=== PATIENT | male | born 1985 | race Caucasian/White ===

== ENCOUNTER 2021-09-28 02:45 | Inpatient (IN) | payer OTHER ==
[~2021-09-28] VITALS: Ht 182.9 cm; Wt 111.0 kg
[2021-09-28 03:22] LABS: BASOPHIL 0.2 % (0-2); EOSINOPHIL 0 % (0-5); HCT 43.9 % (42.0-52.0); HGB 14.2 g/dl (13.2-18.0); LYMPHOCYTE 14.4 % (15-48); MCH 28.9 pg (25.0-31.0); MCHC 32.3 g/dL (32.0-36.0); MCV 89.2 fL (78.0-100.0); MONOCYTE 7.5 % (0-12); MPV 12.3 fL (6.0-9.5); NEUTROPHIL 77.4 % (41-80); NRBC 0; PLT 117 K/uL (150-400); RBC 4.92 M/uL (4.70-6.00); RDW 12.2 % (11.5-14.0); WBC 5.5 K/uL (4.0-10.5)
[2021-09-28 04:17] LABS: BUN/CREAT RATIO (CALC) 16.2 RATIO; CREATININE 0.74 mg/dL (0.67-1.17); POTASSIUM 3.9 mmol/L (3.5-5.1)
[2021-09-29 06:15] LABS: BASOPHIL 0 % (0-2); EOSINOPHIL 0 % (0-5); HCT 42.3 % (42.0-52.0); HGB 13.7 g/dl (13.2-18.0); LYMPHOCYTE 13.1 % (15-48); MCH 28.8 pg (25.0-31.0); MCHC 32.4 g/dL (32.0-36.0); MCV 88.9 fL (78.0-100.0); MONOCYTE 5.6 % (0-12); MPV 12.8 fL (6.0-9.5); NEUTROPHIL 80.8 % (41-80); NRBC 0; PLT 134 K/uL (150-400); RBC 4.76 M/uL (4.70-6.00); RDW 12.3 % (11.5-14.0); WBC 8.3 K/uL (4.0-10.5)
[2021-09-29 06:37] LABS: BUN/CREAT RATIO (CALC) 19.7 RATIO; CREATININE 0.66 mg/dL (0.67-1.17); POTASSIUM 3.6 mmol/L (3.5-5.1)
[2021-09-30 06:31] LABS: BASOPHIL 0.2 % (0-2); EOSINOPHIL 0 % (0-5); HCT 42.6 % (42.0-52.0); HGB 13.6 g/dl (13.2-18.0); LYMPHOCYTE 7.8 % (15-48); MCH 28.9 pg (25.0-31.0); MCHC 31.9 g/dL (32.0-36.0); MCV 90.6 fL (78.0-100.0); MONOCYTE 4.1 % (0-12); NEUTROPHIL 86.9 % (41-80); NRBC 0; PLT 139 K/uL (150-400); RDW 12.2 % (11.5-14.0); WBC 6.3 K/uL (4.0-10.5)
[2021-09-30 06:51] LABS: BUN/CREAT RATIO (CALC) 24.1 RATIO; CREATININE 0.58 mg/dL (0.67-1.17); POTASSIUM 4.4 mmol/L (3.5-5.1)
[2021-10-01 06:15] LABS: BASOPHIL 0.2 % (0-2); EOSINOPHIL 0 % (0-5); HCT 41.3 % (42.0-52.0); HGB 12.6 g/dl (13.2-18.0); MCH 28.5 pg (25.0-31.0); MCHC 30.5 g/dL (32.0-36.0); MCV 93.4 fL (78.0-100.0); MONOCYTE 5.4 % (0-12); MPV 12.9 fL (6.0-9.5); NEUTROPHIL 78.2 % (41-80); NRBC 0; PLT 158 K/uL (150-400); RBC 4.42 M/uL (4.70-6.00); RDW 12.4 % (11.5-14.0); WBC 5.1 K/uL (4.0-10.5)
[2021-10-01 06:50] LABS: BUN/CREAT RATIO (CALC) 33.3 RATIO; CREATININE 0.66 mg/dL (0.67-1.17); POTASSIUM 5.1 mmol/L (3.5-5.1)
[2021-10-02 03:30] LABS: BASOPHIL 0.1 % (0-2); EOSINOPHIL 0 % (0-5); HCT 41.2 % (42.0-52.0); HGB 12.6 g/dl (13.2-18.0); LYMPHOCYTE 8.7 % (15-48); MCH 28.3 pg (25.0-31.0); MCHC 30.6 g/dL (32.0-36.0); MCV 92.6 fL (78.0-100.0); MONOCYTE 5.6 % (0-12); MPV 12.8 fL (6.0-9.5); NEUTROPHIL 84.2 % (41-80); NRBC 0; PLT 201 K/uL (150-400); RBC 4.45 M/uL (4.70-6.00); RDW 12.3 % (11.5-14.0)
[2021-10-02 04:08] LABS: WBC 12.8 K/uL (4.0-10.5)
[2021-10-02 04:13] LABS: CREATININE 0.64 mg/dL (0.67-1.17); POTASSIUM 4.9 mmol/L (3.5-5.1)
[2021-10-03 04:19] LABS: BASOPHIL 0.3 % (0-2); EOSINOPHIL 0 % (0-5); HCT 42.2 % (42.0-52.0); HGB 12.8 g/dl (13.2-18.0); LYMPHOCYTE 7.8 % (15-48); MCH 28.5 pg (25.0-31.0); MCHC 30.3 g/dL (32.0-36.0); MONOCYTE 5.4 % (0-12); MPV 12.7 fL (6.0-9.5); NEUTROPHIL 82.1 % (41-80); NRBC 0; PLT 210 K/uL (150-400); RBC 4.49 M/uL (4.70-6.00); RDW 12.3 % (11.5-14.0)
[2021-10-03 04:44] LABS: BUN/CREAT RATIO (CALC) 37.9 RATIO; CREATININE 0.66 mg/dL (0.67-1.17); POTASSIUM 5.7 mmol/L (3.5-5.1)
[2021-10-03 14:31] LABS: BUN/CREAT RATIO (CALC) 38.1 RATIO; CREATININE 0.63 mg/dL (0.67-1.17)
[2021-10-04 05:17] LABS: BASOPHIL 0.3 % (0-2); EOSINOPHIL 0 % (0-5); HCT 41.2 % (42.0-52.0); HGB 12.7 g/dl (13.2-18.0); LYMPHOCYTE 9.1 % (15-48); MCH 28.8 pg (25.0-31.0); MCHC 30.8 g/dL (32.0-36.0); MCV 93.4 fL (78.0-100.0); MONOCYTE 3.7 % (0-12); MPV 12.7 fL (6.0-9.5); NRBC 0; PLT 209 K/uL (150-400); RBC 4.41 M/uL (4.70-6.00); RDW 12.1 % (11.5-14.0); WBC 15.6 K/uL (4.0-10.5)
[2021-10-04 05:43] LABS: BUN/CREAT RATIO (CALC) 33.9 RATIO; CREATININE 0.62 mg/dL (0.67-1.17); POTASSIUM 4.9 mmol/L (3.5-5.1)
[2021-10-05 05:54] LABS: BASOPHIL 0.3 % (0-2); EOSINOPHIL 0 % (0-5); HCT 38.9 % (42.0-52.0); HGB 12.3 g/dl (13.2-18.0); LYMPHOCYTE 5.6 % (15-48); MCH 29.1 pg (25.0-31.0); MCHC 31.6 g/dL (32.0-36.0); MCV 92.2 fL (78.0-100.0); MONOCYTE 3.7 % (0-12); MPV 11.9 fL (6.0-9.5); NRBC 0; PLT 211 K/uL (150-400); RBC 4.22 M/uL (4.70-6.00); WBC 12.6 K/uL (4.0-10.5)
[2021-10-05 06:56] LABS: BUN/CREAT RATIO (CALC) 44.2 RATIO; CREATININE 0.52 mg/dL (0.67-1.17); POTASSIUM 4.4 mmol/L (3.5-5.1)
[2021-10-06 05:15] LABS: ALBUMIN 2.2 g/dL (3.4-5.0); BILIRUBIN - TOTAL 0.5 mg/dL (0.2-1.0); BUN/CREAT RATIO (CALC) 43.1 RATIO; C-REACTIVE PROTEIN 6.1 mg/dL (<=0.90); CREATININE 0.58 mg/dL (0.67-1.17); GLOBULIN (CALCULATION) 4.9 g/dL; POTASSIUM 3.7 mmol/L (3.5-5.1); TOTAL PROTEIN 7.1 g/dL (6.4-8.2)
[2021-10-08 07:00] LABS: BASOPHIL 0.2 % (0-2); EOSINOPHIL 0.5 % (0-5); HCT 42.9 % (42.0-52.0); HGB 13.5 g/dl (13.2-18.0); MCH 28.8 pg (25.0-31.0); MCHC 31.5 g/dL (32.0-36.0); MCV 91.5 fL (78.0-100.0); MONOCYTE 5.6 % (0-12); MPV 12.6 fL (6.0-9.5); NEUTROPHIL 78.4 % (41-80); NRBC 0; PLT 274 K/uL (150-400); RBC 4.69 M/uL (4.70-6.00); RDW 12.2 % (11.5-14.0)
[2021-10-08 07:11] LABS: BUN/CREAT RATIO (CALC) 23.1 RATIO; C-REACTIVE PROTEIN 4.4 mg/dL (<=0.90); CREATININE 0.65 mg/dL (0.67-1.17); POTASSIUM 4.3 mmol/L (3.5-5.1)
[2021-10-08 07:17] LABS: WBC 19.4 K/uL (4.0-10.5)
[2021-10-09 06:26] LABS: BASOPHIL 0.2 % (0-2); EOSINOPHIL 0.5 % (0-5); HCT 38.5 % (42.0-52.0); LYMPHOCYTE 12.1 % (15-48); MCH 28.8 pg (25.0-31.0); MCHC 31.2 g/dL (32.0-36.0); MCV 92.5 fL (78.0-100.0); MONOCYTE 4.9 % (0-12); MPV 12.2 fL (6.0-9.5); NEUTROPHIL 80.7 % (41-80); NRBC 0; PLT 230 K/uL (150-400); RBC 4.16 M/uL (4.70-6.00); RDW 12.5 % (11.5-14.0); WBC 23.6 K/uL (4.0-10.5)
[2021-10-09 06:40] LABS: BUN/CREAT RATIO (CALC) 30.4 RATIO; CREATININE 0.69 mg/dL (0.67-1.17)
[2021-10-10 03:20] LABS: ALBUMIN 2.3 g/dL (3.4-5.0); BASOPHIL 0.2 % (0-2); BILIRUBIN - TOTAL 0.4 mg/dL (0.2-1.0); BUN/CREAT RATIO (CALC) 25.4 RATIO; CREATININE 0.67 mg/dL (0.67-1.17); EOSINOPHIL 0.1 % (0-5); GLOBULIN (CALCULATION) 4.2 g/dL; HCT 37.7 % (42.0-52.0); HGB 11.6 g/dl (13.2-18.0); LYMPHOCYTE 15.2 % (15-48); MCH 28.4 pg (25.0-31.0); MCHC 30.8 g/dL (32.0-36.0); MCV 92.2 fL (78.0-100.0); MPV 12.8 fL (6.0-9.5); NEUTROPHIL 76.2 % (41-80); NRBC 0; PLT 223 K/uL (150-400); POTASSIUM 3.9 mmol/L (3.5-5.1); RBC 4.09 M/uL (4.70-6.00); RDW 12.2 % (11.5-14.0); TOTAL PROTEIN 6.5 g/dL (6.4-8.2); WBC 17.6 K/uL (4.0-10.5)
[2021-10-11 05:06] LABS: BASOPHIL 0.2 % (0-2); EOSINOPHIL 0.7 % (0-5); HGB 11.3 g/dl (13.2-18.0); MCH 29.1 pg (25.0-31.0); MCHC 31.4 g/dL (32.0-36.0); MCV 92.8 fL (78.0-100.0); MONOCYTE 5.8 % (0-12); NRBC 0; PLT 201 K/uL (150-400); RBC 3.88 M/uL (4.70-6.00); RDW 12.4 % (11.5-14.0); WBC 10.5 K/uL (4.0-10.5)
[2021-10-11 05:25] LABS: ALBUMIN 2.2 g/dL (3.4-5.0); BILIRUBIN - TOTAL 0.4 mg/dL (0.2-1.0); BUN/CREAT RATIO (CALC) 18.5 RATIO; C-REACTIVE PROTEIN 4.1 mg/dL (<=0.90); CREATININE 0.65 mg/dL (0.67-1.17); GLOBULIN (CALCULATION) 3.8 g/dL; POTASSIUM 3.8 mmol/L (3.5-5.1)
[2021-10-11] MEDS ORDERED: AUGMENTIN 875-1 EACH PO (15:21)
[2021-10-11] MEDS ORDERED: HUMULIN R100 UNIT/2 SC (15:21)
[2021-10-11] MEDS ORDERED: LEVAQUIN500 MG PO (15:21)
[2021-10-11] MEDS ORDERED: DIABETIC T100 MG/5 M PO (15:21)
[2021-10-11] MEDS ORDERED: INSULIN GL100 UNIT/1 SC (15:21)
[2021-10-11] MEDS ORDERED: VENTOLIN HFA IN18 GM INH (15:21)
== END 2021-10-11 16:46 | disposition home or self-care (01) | DRG 207 ==
LOC: FER 02:45 → FTCU 12:02 → FICU 09-29 13:56 → FMS 10-07 20:38 → FICU 10-07 20:38 → FMS 10-11 16:46
PROVIDERS: Allergy & Immunology Allergy; Emergency Medicine Emergency Medical Services; Internal Medicine; ADMIT Family Medicine
PROC: XW033E5 Introduction of Remdesivir Anti-infective into Peripheral Vein, Percutaneous Approach, New Technology Group 5 (ICD-10-PCS; 2021-09-28)
PROC: 8E0ZXY6 Isolation (ICD-10-PCS; 2021-09-28)
PROC: 5A0935A Assistance with Respiratory Ventilation, Less than 24 Consecutive Hours, High Flow/Velocity Cannula (ICD-10-PCS; 2021-09-29)
PROC: 5A1955Z Respiratory Ventilation, Greater than 96 Consecutive Hours (ICD-10-PCS; principal; 2021-09-30)
PROC: 0BH17EZ Insertion of Endotracheal Airway into Trachea, Via Natural or Artificial Opening (ICD-10-PCS; 2021-09-30)
PROC: XW0DXM6 Introduction of Baricitinib into Mouth and Pharynx, External Approach, New Technology Group 6 (ICD-10-PCS; 2021-09-30)
PROC: 02HV33Z Insertion of Infusion Device into Superior Vena Cava, Percutaneous Approach (ICD-10-PCS; 2021-10-03)
PROC: 5A0945A Assistance with Respiratory Ventilation, 24-96 Consecutive Hours, High Flow/Velocity Cannula (ICD-10-PCS; 2021-10-04)
PROC: 5A09357 Assistance with Respiratory Ventilation, Less than 24 Consecutive Hours, Continuous Positive Airway Pressure (ICD-10-PCS; 2021-10-06)
DX: U07.1 COVID-19 (principal); J12.82 Pneumonia due to coronavirus disease 2019; J96.01 Acute respiratory failure with hypoxia; G93.41 Metabolic encephalopathy; J95.851 Ventilator associated pneumonia; E87.1 Hypo-osmolality and hyponatremia; D69.6 Thrombocytopenia, unspecified; E11.9 Type 2 diabetes mellitus without complications; K76.0 Fatty (change of) liver, not elsewhere classified; E86.0 Dehydration; E87.5 Hyperkalemia; E11.65 Type 2 diabetes mellitus with hyperglycemia; E11.649 Type 2 diabetes mellitus with hypoglycemia without coma; E66.9 Obesity, unspecified; F41.9 Anxiety disorder, unspecified; R16.1 Splenomegaly, not elsewhere classified; Z68.36 Body mass index [BMI] 36.0-36.9, adult; Z99.81 Dependence on supplemental oxygen; Z78.1 Physical restraint status
CPT/HCPCS: 36415; 36600; 71045; 71275; 74018; 80048; 80053; 80202; 82728; 82803; 82962; 83036; 83880; 84145; 85025; 85379; 86140; 87040; 93005; 94002; 94640; 94660; 94664; 94760; 94762; 96365; 96367; 96375; 97110; 97116; 97162; 97166; 97530; 97530-GP; 97535; C9399; J0456; J0610; J1100; J1650; J1815; J1885; J1940; J1956; J2060; J2250; J2543; J2704; J3010; J3370; J3480; J7030; J7040; J7050; J8540; U0002